=== PATIENT | female | born 1965 | race Caucasian/White ===

== ENCOUNTER 2024-10-13 17:48 | Emergency (ER) | payer BC ==
[2024-10-13] MEDS: fentaNYL 100 MCG/2 ML SDV NASBOTH ONE (18:57)
== END 2024-10-13 20:13 | disposition home or self-care (01) ==
LOC: JP.ED 17:48
DX: S52.121A Displaced fracture of head of right radius, initial encounter for closed fracture (principal); Z79.899 Other long term (current) drug therapy; W01.0XXA Fall on same level from slipping, tripping and stumbling without subsequent striking against object, initial encounter; Y92.009 Unspecified place in unspecified non-institutional (private) residence as the place of occurrence of the external cause
CPT/HCPCS: 29125; 73110; 99283; J3010

== ENCOUNTER 2024-10-15 08:04 | Day surgery (SDC) | payer BC ==
[2024-10-15 08:32] LABS: PLATELET COUNT,PLT 355.0 K/uL (130-375); RED BLOOD CELL COUNT 4.32 M/uL (3.77-5.24); WHITE BLOOD CELL COUNT,WBC 7.3 K/uL (3.2-11.0)
[2024-10-15 08:46] LABS: BLOOD UREA NITROGEN,BUN 13.0 mg/dL (7-18); CARBON DIOXIDE,CO2 29.0 mmol/L (21-32); CHLORIDE,CL 105.0 mmol/L (100-108); CREATININE 0.8 mg/dL (0.6-1.0); EST CRCL DRUG DOSING (CG) 78.15 mL/min; ESTIMATED GFR 84.0 mL/min (>60); GLUCOSE RANDOM 102.0 mg/dL (74-106); POTASSIUM,K 3.9 mmol/L (3.6-5.2); SODIUM,NA 143.0 mmol/L (140-148)
[2024-10-15] MEDS ORDERED: fentaNYL 250 MCG/5 ML SDV ONE (08:54)
[2024-10-15] MEDS ORDERED: Propofol 200 MG/20 ML SDV ONE (08:55)
[2024-10-15] MEDS ORDERED: Dexamethasone 4 MG/ML SDV ONE (08:55)
[2024-10-15] MEDS ORDERED: Midazolam 1 MG/ML 2 ML SDV ONE (08:55)
[2024-10-15] MEDS ORDERED: Ondansetron 4 MG/2 ML SDV ONE (08:55)
[2024-10-15] MEDS: Lactated Ringers 1,000 ML IV SCH (09:00)
[2024-10-15] MEDS: Nozin Nasal Sanitizer NASBOTH ONE (09:01)
[2024-10-15] MEDS: Scopalamine 1mg/3day Transdermal Patch TOP ONE (10:13)
[2024-10-15] MEDS ORDERED: Acetaminophen/HYDROcodone 325-5 MG Tab PO PRN (12:39)
== END 2024-10-15 13:25 | disposition home or self-care (01) ==
LOC: JP.SDS 08:04
PROVIDERS: ATTEND Specialist
DX: S52.571A Other intraarticular fracture of lower end of right radius, initial encounter for closed fracture (principal); Z79.899 Other long term (current) drug therapy
CPT/HCPCS: 01830; 25608; 36415; 76000; 80048; 85027; A9270; J0665; J0690; J1100; J1790; J2250; J2405; J2704; J3010; J7120